=== PATIENT | male | born 1985 | race African-American/Black ===

== ENCOUNTER 2016-07-23 12:58 | Emergency (ER) | payer OTHER ==
[~2016-07-23] VITALS: Ht 190.5 cm; Wt 136.1 kg
[~2016-07-23 12:58] MED LIST: ALBU0.0939 IH
[2016-07-23 13:13] VITALS: BP 140/80
[2016-07-23] MEDS ORDERED: ORE25 PO (13:16)
[2016-07-23] MEDS ORDERED: AMLO10TA PO (13:16)
[2016-07-23] MEDS ORDERED: LISI-420 PO (13:16)
--- NOTE | 2016-07-23 13:35 | NUR ---
Patient going to CT via wheelchair per tech.
[2016-07-23 13:38] LABS: BASOPHILS # (AUTO) 0.2 K/uL (0.00-0.22); BASOPHILS % (AUTO) 2.5 % (0.0-2.0); EOSINOPHILS # (AUTO) 0.2 K/uL (0-0.4); EOSINOPHILS % (AUTO) 2.3 % (0.0-4.0); HEMATOCRIT 46.3 % (36-52); HEMOGLOBIN 15.6 g/dL (12.0-18.0); LYMPHOCYTES # (AUTO) 2.3 K/uL (2.0-11.5); LYMPHOCYTES % (AUTO) 31.4 % (20.5-51.1); MEAN CORPUSCULAR HEMOGLOBIN 32 pg (27-31); MEAN CORPUSCULAR HGB CONC 34 g/dL (33-37); MEAN CORPUSCULAR VOLUME 96 fL (80-94); MONOCYTES # (AUTO) 0.7 K/uL (0.8-1.0); MONOCYTES % (AUTO) 10.2 % (1.7-9.3); NEUTROPHILS # (AUTO) 3.8 K/uL (1.8-7.7); NEUTROPHILS % (AUTO) 53.6 % (42.2-75.2); PLATELET COUNT (AUTO) 268 K/uL (140-450); RED BLOOD CELL COUNT(AUTO) 4.84 MIL/uL (4.20-6.10); RED CELL DISTRIBUTION WIDTH 12.5 % (11.6-13.7); WHITE BLOOD COUNT (AUTO) 7.2 K/uL (4.8-10.8)
--- NOTE | 2016-07-23 13:46 | NUR ---
Patient back from CT via wheelchair per tech.
[2016-07-23 13:50] LABS: ANION GAP 9.3 (8-16); CALCIUM 8.8 mg/dL (8.5-10.1); CARBON DIOXIDE 30.2 mmol/L (21-32); CREATININE 1.1 mg/dL (0.6-1.3); POTASSIUM 3.5 mmol/L (3.5-5.1)
[2016-07-23 13:55] LABS: INR 1.1 (0.8-1.2); PARTIAL THROMBOPLASTIN TIME 27.2 secs (22-35.6); PROTHROMBIN TIME 10.4 secs (10.8-13.4)
[2016-07-23 13:56] LABS: ALBUMIN 3.7 g/dL (3.4-5.0); TOTAL BILIRUBIN 0.6 mg/dL (0.0-1.0)
--- NOTE | 2016-07-23 14:00 | NUR ---
Patient ambulated to bed 05.
--- NOTE | 2016-07-23 14:06 | NUR ---
PT CAME IN WITH CO VOMITING WITH BLOOD AND DARK STOOL. RLQ ABD PAIN X4 DAYS.PER PT ABDOMINAL PAIN WORSENS WHEN COUGING.
--- NOTE | 2016-07-23 14:25 | NUR ---
Dr. Hou evaluating patient at bedside.
[2016-07-23] MEDS ORDERED: ONDANSETRON 4 MG ODT PO ONE (14:30)
[2016-07-23] MEDS ORDERED: KETOROLAC 30 MG/ML VIAL IVP ONE (14:30)
[2016-07-23] MEDS ORDERED: KETOROLAC 60 MG/2 ML VIAL IM ONE (14:50)
[2016-07-23 15:50] VITALS: BP 143/82
--- NOTE | 2016-07-23 15:50 | NUR ---
Patient discharged with v/s stable. Written and verbal after care instructions given and explained. Patient alert, oriented and verbalized understanding of instructions. Ambulatory with steady gait. All questions addressed prior to discharge. ID band removed. Patient advised to follow up with PMD. Rx of PRILOSEC,MOTRIN,ZOFRAN,IMODIUM given. Patient educated on indication of medication including possible reaction and side effects. Opportunity to ask questions provided and answered.
== END 2016-07-23 15:50 | disposition home or self-care (01) ==
LOC: MED 12:58
DX: R10.32 Left lower quadrant pain (principal); R11.2 Nausea with vomiting, unspecified; R19.7 Diarrhea, unspecified; J45.909 Unspecified asthma, uncomplicated; I10 Essential (primary) hypertension; F17.200 Nicotine dependence, unspecified, uncomplicated
CPT/HCPCS: 36415; 74176; 80053; 83690; 85025; 85610; 85730; 96372; 99285; J1885; S0119

== ENCOUNTER 2022-12-01 13:09 | Emergency (ER) | payer OTHER ==
[~2022-12-01] VITALS: Ht 190.5 cm; Wt 119.4 kg
[~2022-12-01 13:09] MED LIST changes: +AMLO10TA PO; +HYDR-4004 PO; +LISI-487 PO
[2022-12-01 13:36] VITALS: BP 131/80; PULSE 78; RESP 18; TEMP 97.6; O2SAT 98
[2022-12-01] MEDS ORDERED: KETOROLAC 15 MG/ML VIAL IM ONE (14:30)
[2022-12-01] MEDS ORDERED: ACETAMINOPHEN EXTRA STRENGTH 500 MG TAB PO ONE (14:30)
[2022-12-01 15:09] LABS: BASOPHILS # (AUTO) 0.1 K/uL (0.00-0.22); BASOPHILS % (AUTO) 0.8 % (0.0-2.0); EOSINOPHILS # (AUTO) 0.1 K/uL (0-0.4); EOSINOPHILS % (AUTO) 1.7 % (0.0-4.0); HEMATOCRIT 49.2 % (36-52); HEMOGLOBIN 16.5 g/dL (12.0-18.0); LYMPHOCYTES # (AUTO) 3.1 K/uL (2.0-11.5); LYMPHOCYTES % (AUTO) 41.5 % (20.5-51.1); MEAN CORPUSCULAR HEMOGLOBIN 33 pg (27-31); MEAN CORPUSCULAR HGB CONC 34 g/dL (33-37); MONOCYTES # (AUTO) 0.7 K/uL (0.8-1.0); MONOCYTES % (AUTO) 9.7 % (1.7-9.3); NEUTROPHILS # (AUTO) 3.4 K/uL (1.8-7.7); NEUTROPHILS % (AUTO) 46.3 % (42.2-75.2); PLATELET COUNT (AUTO) 288 K/uL (140-450); RED BLOOD CELL COUNT(AUTO) 4.97 MIL/uL (4.20-6.10); RED CELL DISTRIBUTION WIDTH 12.9 % (11.6-13.7); WHITE BLOOD COUNT (AUTO) 7.4 K/uL (4.8-10.8)
[2022-12-01 15:17] LABS: APPEARANCE,URINE CLEAR (CLEAR); COLOR,URINE YELLOW (YELLOW); LEUKOCYTE ESTERASE ,URINE NEGATIVE (NEGATIVE)
[2022-12-01 15:18] LABS: NITRITE, URINE NEGATIVE (NEGATIVE); PROTEIN,URINE TRACE (NEGATIVE); UROBILINOGEN,URINE 0.2 EU/dL (0.2 - 1)
[2022-12-01 15:19] LABS: BLOOD, URINE NEGATIVE (NEGATIVE)
[2022-12-01 15:20] LABS: BILIRUBIN,URINE NEGATIVE (NEGATIVE); UGLUCOSE NEGATIVE (NEGATIVE)
[2022-12-01 15:26] LABS: ALBUMIN 3.6 g/dL (3.4-5.0); ANION GAP 8.5 (8-16); CALCIUM 8.6 mg/dL (8.5-10.1); CARBON DIOXIDE 29.1 mmol/L (21-32); CREATININE 1.1 mg/dL (0.6-1.3); POTASSIUM 3.6 mmol/L (3.5-5.1); TOTAL BILIRUBIN 0.4 mg/dL (0.0-1.0); TOTAL PROTEIN, SERUM 7.2 g/dL (6.4-8.2)
[2022-12-01] MEDS ORDERED: IBUP-1842 PO (15:39)
[2022-12-01 16:05] VITALS: BP 134/85; PULSE 68; RESP 22; TEMP 97.6; O2SAT 98
== END 2022-12-01 16:05 | disposition home or self-care (01) ==
LOC: MED 13:09
DX: R10.9 Unspecified abdominal pain (principal); J45.909 Unspecified asthma, uncomplicated; I10 Essential (primary) hypertension; Z79.899 Other long term (current) drug therapy
CPT/HCPCS: 36415; 80053; 81003; 83690; 85025; 96372; 99283; J1885

== ENCOUNTER 2022-12-24 09:18 | Emergency (ER) | payer OTHER ==
[~2022-12-24] VITALS: Ht 190.5 cm; Wt 117.9 kg
[~2022-12-24 09:18] MED LIST changes: +IBUP-1842 PO
[2022-12-24 09:31] VITALS: BP 133/84; PULSE 79; RESP 20; TEMP 98.7; O2SAT 99
[2022-12-24 10:10] LABS: BASOPHILS % (AUTO) 0.6 % (0.0-2.0); EOSINOPHILS # (AUTO) 0.1 K/uL (0-0.4); EOSINOPHILS % (AUTO) 1.6 % (0.0-4.0); HEMATOCRIT 46.4 % (36-52); HEMOGLOBIN 16.1 g/dL (12.0-18.0); LYMPHOCYTES # (AUTO) 1.6 K/uL (2.0-11.5); LYMPHOCYTES % (AUTO) 29.1 % (20.5-51.1); MEAN CORPUSCULAR HEMOGLOBIN 34 pg (27-31); MEAN CORPUSCULAR HGB CONC 35 g/dL (33-37); MEAN CORPUSCULAR VOLUME 97.4 fL (80-94); MONOCYTES # (AUTO) 0.5 K/uL (0.8-1.0); MONOCYTES % (AUTO) 9.6 % (1.7-9.3); NEUTROPHILS # (AUTO) 3.2 K/uL (1.8-7.7); NEUTROPHILS % (AUTO) 59.1 % (42.2-75.2); PLATELET COUNT (AUTO) 259 K/uL (140-450); RED BLOOD CELL COUNT(AUTO) 4.76 MIL/uL (4.20-6.10); RED CELL DISTRIBUTION WIDTH 12.6 % (11.6-13.7); WHITE BLOOD COUNT (AUTO) 5.5 K/uL (4.8-10.8)
[2022-12-24 10:16] LABS: APPEARANCE,URINE CLEAR (CLEAR); BILIRUBIN,URINE NEGATIVE (NEGATIVE); BLOOD, URINE NEGATIVE (NEGATIVE); COLOR,URINE YELLOW (YELLOW); LEUKOCYTE ESTERASE ,URINE NEGATIVE (NEGATIVE); NITRITE, URINE NEGATIVE (NEGATIVE); PROTEIN,URINE NEGATIVE (NEGATIVE); UGLUCOSE NEGATIVE (NEGATIVE)
[2022-12-24 10:26] LABS: ALBUMIN 3.6 g/dL (3.4-5.0); ANION GAP 9.7 (8-16); CALCIUM 8.9 mg/dL (8.5-10.1); CARBON DIOXIDE 26.4 mmol/L (21-32); CREATININE 0.8 mg/dL (0.6-1.3); POTASSIUM 3.1 mmol/L (3.5-5.1); TOTAL BILIRUBIN 0.9 mg/dL (0.0-1.0); TOTAL PROTEIN, SERUM 6.8 g/dL (6.4-8.2)
[2022-12-24 12:11] VITALS: O2SAT 99
[2022-12-24] MEDS ORDERED: MIRABULK PO (12:44)
[2022-12-24] MEDS ORDERED: OMEP40EC24 PO (12:44)
[2022-12-24 14:48] VITALS: O2SAT 99
== END 2022-12-24 12:57 | disposition home or self-care (01) ==
LOC: MED 09:18
DX: K29.70 Gastritis, unspecified, without bleeding (principal); K59.00 Constipation, unspecified; K43.9 Ventral hernia without obstruction or gangrene; K42.9 Umbilical hernia without obstruction or gangrene; K76.9 Liver disease, unspecified; D35.02 Benign neoplasm of left adrenal gland; J45.909 Unspecified asthma, uncomplicated; I10 Essential (primary) hypertension; F17.210 Nicotine dependence, cigarettes, uncomplicated; Z98.84 Bariatric surgery status; Z98.890 Other specified postprocedural states; Z79.899 Other long term (current) drug therapy
CPT/HCPCS: 36415; 80053; 81003; 83690; 85025; 99284

== ENCOUNTER 2023-05-29 13:11 | Emergency (ER) | payer OTHER ==
[~2023-05-29] VITALS: Ht 190.5 cm; Wt 104.4 kg
[~2023-05-29 13:11] MED LIST changes: +MIRABULK PO; +OMEP40EC24 PO
[2023-05-29 13:23] VITALS: BP 117/77; PULSE 102; RESP 20; TEMP 99.3; O2SAT 99
[2023-05-29] MEDS: LIDOCAINE 2% 100 MG/5 ML UJET TP ONE (14:30)
[2023-05-29 14:58] LABS: APPEARANCE,URINE CLEAR (CLEAR); BILIRUBIN,URINE 2+ (NEGATIVE); BLOOD, URINE NEGATIVE (NEGATIVE); COLOR,URINE YELLOW (YELLOW); LEUKOCYTE ESTERASE ,URINE TRACE (NEGATIVE); NITRITE, URINE NEGATIVE (NEGATIVE); PROTEIN,URINE NEGATIVE (NEGATIVE); UGLUCOSE NEGATIVE (NEGATIVE)
[2023-05-29 15:08] LABS: ICTOTEST NEGATIVE (NEGATIVE)
[2023-05-29] MEDS: PENICILLIN G BENZATHINE L-A 1.2 MU/2 ML SYR IM ONE (15:47)
[2023-05-29 15:50] LABS: HIV RAPID SCREEN NON-REACTIVE (NON REACTIV)
[2023-05-29 16:04] LABS: RAPID PLASMA REAGIN REACTIVE (Non Reactiv)
[2023-05-29] MEDS: AZITHROMYCIN 250 MG TAB PO ONE (17:23)
[2023-05-29 17:36] VITALS: BP 125/76; PULSE 72; RESP 16; TEMP 98; O2SAT 99
[2023-05-30 10:39] LABS: NEISSERIA GONORRHOEAE PCR Detected (NOTdetected)
== END 2023-05-29 17:38 | disposition home or self-care (01) ==
LOC: MED 13:11
DX: A53.9 Syphilis, unspecified (principal); A57 Chancroid; J45.909 Unspecified asthma, uncomplicated; I10 Essential (primary) hypertension; Z79.899 Other long term (current) drug therapy
CPT/HCPCS: 36415; 54450; 81003; 86592; 86703; 87491; 87529; 96372; 99284; J0561

== ENCOUNTER 2023-05-30 13:28 | Emergency (ER) | payer OTHER ==
[~2023-05-30] VITALS: Ht 190.5 cm; Wt 102.1 kg
[2023-05-30 13:43] VITALS: BP 104/66; PULSE 93; RESP 20; TEMP 98.2; O2SAT 97
[2023-05-30] MEDS ORDERED: cefTRIAXone 500 MG VIAL ONE (14:01)
[2023-05-30] MEDS ORDERED: LIDOCAINE MPF 1% 5 ML ONE (14:02)
[2023-05-30] MEDS: cefTRIAXone 500 MG in LIDOCAINE MPF 1% 1 ML IM ONE (14:03)
[2023-05-30 14:31] VITALS: BP 106/58; PULSE 88; RESP 16; TEMP 98; O2SAT 99
== END 2023-05-30 14:33 | disposition home or self-care (01) ==
LOC: MED 13:28
DX: A54.9 Gonococcal infection, unspecified (principal); J45.909 Unspecified asthma, uncomplicated; I10 Essential (primary) hypertension; Z79.899 Other long term (current) drug therapy
CPT/HCPCS: 96372; 99283; J0696; J2001

== ENCOUNTER 2023-06-23 05:45 | Emergency (ER) | payer OTHER ==
[~2023-06-23] VITALS: Ht 190.5 cm; Wt 104.3 kg
[2023-06-23 05:54] VITALS: BP 127/84; PULSE 75; RESP 16; TEMP 98.2; O2SAT 100
[2023-06-23 08:29] LABS: BASOPHILS % (AUTO) 0.9 % (0.0-2.0); EOSINOPHILS # (AUTO) 0.1 K/uL (0-0.4); EOSINOPHILS % (AUTO) 2.1 % (0.0-4.0); HEMATOCRIT 44.8 % (36-52); HEMOGLOBIN 15.1 g/dL (12.0-18.0); LYMPHOCYTES # (AUTO) 1.8 K/uL (2.0-11.5); LYMPHOCYTES % (AUTO) 48.7 % (20.5-51.1); MEAN CORPUSCULAR HEMOGLOBIN 33 pg (27-31); MEAN CORPUSCULAR HGB CONC 34 g/dL (33-37); MEAN CORPUSCULAR VOLUME 98.4 fL (80-94); MONOCYTES # (AUTO) 0.4 K/uL (0.8-1.0); MONOCYTES % (AUTO) 9.5 % (1.7-9.3); NEUTROPHILS # (AUTO) 1.5 K/uL (1.8-7.7); NEUTROPHILS % (AUTO) 38.8 % (42.2-75.2); PLATELET COUNT (AUTO) 259 K/uL (140-450); RED BLOOD CELL COUNT(AUTO) 4.55 MIL/uL (4.20-6.10); RED CELL DISTRIBUTION WIDTH 13.2 % (11.6-13.7); WHITE BLOOD COUNT (AUTO) 3.8 K/uL (4.8-10.8)
[2023-06-23 08:59] LABS: ALBUMIN 3.9 g/dL (3.4-5.0); ANION GAP 8.7 (8-16); CALCIUM 8.8 mg/dL (8.5-10.1); CARBON DIOXIDE 30.2 mmol/L (21-32); CREATININE 0.9 mg/dL (0.6-1.3); POTASSIUM 3.9 mmol/L (3.5-5.1); TOTAL BILIRUBIN 0.8 mg/dL (0.0-1.0); TOTAL PROTEIN, SERUM 7.2 g/dL (6.4-8.2)
[2023-06-23] MEDS ORDERED: IBUP-2213 PO (09:49)
[2023-06-23 10:06] VITALS: BP 127/89; PULSE 66; RESP 16; TEMP 98.2; O2SAT 100
== END 2023-06-23 10:06 | disposition home or self-care (01) ==
LOC: MED 05:45
DX: R07.9 Chest pain, unspecified (principal); R05.9 Cough, unspecified; J45.909 Unspecified asthma, uncomplicated; I10 Essential (primary) hypertension; Z79.899 Other long term (current) drug therapy
CPT/HCPCS: 36415; 71045; 80053; 84484; 85025; 93005; 99285

== ENCOUNTER 2023-10-06 14:53 | Emergency (ER) | payer OTHER ==
[~2023-10-06] VITALS: Ht 190.5 cm; Wt 104.3 kg
[~2023-10-06 14:53] MED LIST changes: +IBUP-2213 PO; -LISI-487 PO; +LISI-953 PO
[2023-10-06 15:13] VITALS: BP 124/89; PULSE 87; RESP 16; TEMP 98.2; O2SAT 99
[2023-10-06] MEDS ORDERED: AMOX-1230 PO (16:23)
[2023-10-06] MEDS ORDERED: LORA1T1237 PO (16:23)
[2023-10-06] MEDS ORDERED: FLONAS NS (16:23)
== END 2023-10-06 16:46 | disposition home or self-care (01) ==
LOC: MED 14:53
DX: H92.02 Otalgia, left ear (principal); J45.909 Unspecified asthma, uncomplicated; I10 Essential (primary) hypertension; Z79.899 Other long term (current) drug therapy
CPT/HCPCS: 99283

== ENCOUNTER 2023-11-06 11:28 | Emergency (ER) | payer OTHER ==
[~2023-11-06] VITALS: Ht 190.5 cm; Wt 105.4 kg
[~2023-11-06 11:28] MED LIST changes: +AMOX-1230 PO; +FLONAS NS; +LORA1T1237 PO
[2023-11-06 11:32] VITALS: BP 124/80; PULSE 91; RESP 15; TEMP 98.1; O2SAT 99
[2023-11-06] MEDS ORDERED: CLIN50GE TP (12:22)
[2023-11-06 12:42] VITALS: BP 124/80; PULSE 91; RESP 15; TEMP 98.1; O2SAT 99
== END 2023-11-06 12:41 | disposition home or self-care (01) ==
LOC: MED 11:28
DX: R21 Rash and other nonspecific skin eruption (principal); I10 Essential (primary) hypertension; J45.909 Unspecified asthma, uncomplicated; Z79.899 Other long term (current) drug therapy
CPT/HCPCS: 99283

== ENCOUNTER 2023-11-09 20:36 | Emergency (ER) | payer OTHER ==
[~2023-11-09] VITALS: Ht 190.5 cm; Wt 104.3 kg
[~2023-11-09 20:36] MED LIST changes: +CLIN50GE TP
[2023-11-09 20:44] VITALS: BP 126/86; PULSE 74; RESP 16; TEMP 98.5; O2SAT 98
[2023-11-09 21:38] VITALS: BP 126/86; PULSE 74; RESP 16; TEMP 98.5; O2SAT 98
== END 2023-11-09 21:38 | disposition home or self-care (01) ==
LOC: MED 20:36
DX: Z48.01 Encounter for change or removal of surgical wound dressing (principal); J45.909 Unspecified asthma, uncomplicated; I10 Essential (primary) hypertension; Z79.899 Other long term (current) drug therapy
CPT/HCPCS: 99282

== ENCOUNTER 2023-12-25 04:50 | Emergency (ER) | payer OTHER ==
[~2023-12-25] VITALS: Ht 190.5 cm; Wt 104.3 kg
[2023-12-25 04:56] VITALS: BP 148/85; PULSE 75; RESP 18; TEMP 98.2; O2SAT 97
[2023-12-25 05:39] LABS: BASOPHILS % (AUTO) 0.2 % (0.0-2.0); EOSINOPHILS % (AUTO) 0.2 % (0.0-4.0); HEMATOCRIT 39.4 % (36-52); HEMOGLOBIN 13.2 g/dL (12.0-18.0); LYMPHOCYTES # (AUTO) 0.9 K/uL (2.0-11.5); LYMPHOCYTES % (AUTO) 12.1 % (20.5-51.1); MEAN CORPUSCULAR HEMOGLOBIN 34 pg (27-31); MEAN CORPUSCULAR HGB CONC 33 g/dL (33-37); MEAN CORPUSCULAR VOLUME 102.2 fL (80-94); MONOCYTES # (AUTO) 0.7 K/uL (0.8-1.0); MONOCYTES % (AUTO) 9.2 % (1.7-9.3); NEUTROPHILS # (AUTO) 5.6 K/uL (1.8-7.7); NEUTROPHILS % (AUTO) 78.3 % (42.2-75.2); PLATELET COUNT (AUTO) 267 K/uL (140-450); RED BLOOD CELL COUNT(AUTO) 3.86 MIL/uL (4.20-6.10); RED CELL DISTRIBUTION WIDTH 12.5 % (11.6-13.7); WHITE BLOOD COUNT (AUTO) 7.2 K/uL (4.8-10.8)
[2023-12-25] MEDS: MORPHINE SULFATE 4 MG/ML SYR IVP ONE (05:47)
[2023-12-25] MEDS: NACL 0.9% 1,000 ML IV ONE (05:48)
[2023-12-25 05:53] LABS: ANION GAP 12.4 (8-16); CALCIUM 8.3 mg/dL (8.5-10.1); CARBON DIOXIDE 25.1 mmol/L (21-32); CREATININE 1.1 mg/dL (0.6-1.3); POTASSIUM 3.5 mmol/L (3.5-5.1)
[2023-12-25 06:37] LABS: ALBUMIN 3.4 g/dL (3.4-5.0); BILIRUBIN,DIRECT 0.2 mg/dL (0.0-0.3); TOTAL BILIRUBIN 0.8 mg/dL (0.0-1.0); TOTAL PROTEIN, SERUM 6.2 g/dL (6.4-8.2)
[2023-12-25] MEDS: KETOROLAC 30 MG/ML VIAL IVP ONE (06:54)
[2023-12-25] MEDS: HYDROcodone/APAP 10/325 MG 1 TAB TAB PO ONE (06:56)
[2023-12-25] MEDS: FAMOTIDINE 20 MG TAB PO ONE (06:57)
[2023-12-25 08:38] VITALS: PULSE 73; RESP 13; O2SAT 98
== END 2023-12-25 08:36 | disposition home or self-care (01) ==
LOC: MED 04:50
DX: G89.18 Other acute postprocedural pain (principal); J45.909 Unspecified asthma, uncomplicated; I10 Essential (primary) hypertension; Z79.899 Other long term (current) drug therapy; Z88.6 Allergy status to analgesic agent
CPT/HCPCS: 36415; 74177; 80048; 80076; 83690; 85025; 96361; 96374; 96375; 99285; J1885; J2270; J7030; Q9967

== ENCOUNTER 2024-01-05 03:25 | Emergency (ER) | payer OTHER ==
[~2024-01-05] VITALS: Ht 190.5 cm; Wt 104.3 kg
[2024-01-05 03:29] VITALS: BP 138/82; PULSE 88; RESP 18; TEMP 98; O2SAT 98
[2024-01-05 04:00] VITALS: BP 138/82; PULSE 88; RESP 18; TEMP 98; O2SAT 98
== END 2024-01-05 04:00 | disposition home or self-care (01) ==
LOC: MED 03:25
DX: T81.31XA Disruption of external operation (surgical) wound, not elsewhere classified, initial encounter (principal); J45.909 Unspecified asthma, uncomplicated; I10 Essential (primary) hypertension; Z79.899 Other long term (current) drug therapy; Z88.6 Allergy status to analgesic agent
CPT/HCPCS: 99281